=== PATIENT | male | born 1985 ===

== ENCOUNTER 2018-12-07 19:18 | Emergency (ER) | payer OTHER ==
[2018-12-07 19:24] VITALS: BP 127/66; PULSE 55; RESP 16; TEMP 98.7; O2SAT 99
[2018-12-07] MEDS ORDERED: Fluorescein 1 mg Ophthalmic Strip OS ONE (19:50)
[2018-12-07] MEDS ORDERED: Tetracaine 0.5% Ophth 2 ML BOTTLE OS ONE (19:50)
--- NOTE | 2018-12-07 20:09 | ED PDOC ---
HPI: Eye Injury/Pain Time Seen by Provider: 12/07/18 19:25 Chief Complaint (Nursing): Eye Problem Chief Complaint (Provider): Left Eye Discomfort History Per: Patient, Manager Recruitment (AntonietaYossiCrowning Inspector Rocael #[id number]) History/Exam Limitations: no limitations Onset/Duration Of Symptoms: Hrs (since 1500 today) Current Symptoms Are (Timing): Still Present Additional Complaint(s): 33 year old male presents to the ED for evaluation of foreign body sensation to his left eye. 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 Contrary to triage note, patient denies chemical exposure. Additionally denies fever, visual changes, mucus discharge, and trauma to the eye. Does not wear glasses or contacts. No other complaints at present. PMD: none provided Past Medical History Reviewed: Historical Data, Nursing Documentation, Vital Signs Vital Signs: Last Vital Signs Temp 98.7 F 12/07/18 19:23 Pulse 55 L 12/07/18 19:23 Resp 16 12/07/18 19:23 BP 127/66 12/07/18 19:23 Pulse Ox 99 12/07/18 19:23 - Medical History PMH: No Chronic Diseases - Surgical History Other surgeries: Yes: stigmatism and myopia correction - Family History Family History: States: Unknown Family Hx - Social History Current smoker - smoking cessation education provided: No Alcohol: None Drugs: Denies - Home Medications Home Medications: Ambulatory Orders Medication Instructions Recorded Tobramycin 0.3% [Tobrex 0.3% Ophth 1 drop OS Q6 #1 bottle 12/07/18 Soln] - Allergies Allergies/Adverse Reactions: Allergies Allergy/AdvReac Type Severity Reaction Status Date / Time No Known Allergies Allergy Verified 12/07/18 19:22 Review of Systems ROS Statement: Except As Marked, All Systems Reviewed And Found Negative Constitutional: Negative for: Fever Eyes: Positive for: Other (foreign body sensation to left eye with localized discomfort, but no mucus discharge). Negative for: Vision Change Physical Exam - Reviewed Nursing Documentation Reviewed: Yes Vital Signs Reviewed: Yes - Physical Exam Comments: GENERAL APPEARANCE: Patient is awake, alert, oriented x 3, in no acute distress. Resting comfortably. HEENT: (-) facial swelling and erythema, (-) facial blisters. (-) periorbital swelling, erythema, or tenderness VISUAL ACUITIES: Left eye: 20/ 40 ; Right eye: 20/ 25 ; Bilateral: 20/ 13 LIDS & LASHES: Normal. No crusting. PUPILS: Pupils equal and reactive. EOMI's: Intact and painless. LID EVERSION: (-) foreign body. CONJUNCTIVAE: (-) injection (-) chemosis ANTERIOR CHAMBER: (-) foreign body, (-) hyphema. FLUORESCEIN: (+) 2mm uptake to 4 o'clock position to left iris CARDIOVASCULAR: regular rate and rhythm RESPIRATORY: lungs clear to auscultation bilaterally; breath sounds equal. Respirations even and nonlabored. NEURO: Mental status as above. Gait: steady. Speech: clear. (-) facial asymmetry (-) aphasia. - ECG O2 Sat by Pulse Oximetry: 99 (RA) Pulse Ox Interpretation: Normal Medical Decision Making Medical Decision Making: Initial Impression: foreign body sensation of eye, eye irritation Time: 1949 Initial Plan: --Nwfow-I-Osoqn 1mg OS --Tetracaine 1 drop OS --Visual acuity --Re-evaluation 2054 Tobramycin eye drops ordered in light of fluorescein findings. 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 Lab/Diagnostic results d/w the patient in great detail. Diagnosis of foreign body sensation of eye, conjunctival abrasion d/w the patient. Based on history, exam and diagnostic results, plan will be for outpatient follow up with ophtho/clinic. Patient instructed to follow-up with pmd / referral provided / the clinic in 1- 2 days without fail. Advised to take medication as prescribed. Return to the emergency room at any time for any new or worsening symptoms. Patient states he fully agrees with and understands discharge instructions. States that he agrees with the plan and disposition. Verbalized and repeated discharge instructions and plan. I have given the patient opportunity to ask any additional questions. Scribe Attestation: Documented by Elma Bailey, acting as a scribe for Iwona Zhang PA-C. Provider Scribe Attestation: All medical record entries made by the Scribe were at my direction and person ally dictated by me. I have reviewed the chart and agree that the record accurately reflects my personal performance of the history, physical exam, medical decision making, and the department course for this patient. I have also personally directed, reviewed, and agree with the discharge instructions and disposition. Disposition - Clinical Impression Clinical Impression: Conjunctival abrasion, Eye irritation, Sensation of foreign body in eye - Patient ED Disposition Is Patient to be Admitted: No Counseled Patient/Family Regarding: Studies Performed, Diagnosis, Need For Followup, Rx Given - Disposition Referrals: Christian Menjivar MD [Staff Provider] - [facility] [Outside] Disposition: Routine/Home Disposition Time: 21:00 Condition: STABLE Additional Instructions: La atencin mdica de emergencia que recibi hoy se dirigi a martina sntomas agudos. Si le recetaron algn medicamento, llnelo y tmelo segn las indicaciones. Los sntomas pueden tardar varios schafer en resolverse. Regrese al Departamento de Emergencias si martina sntomas empeoran, no mejoran o si tiene otros problemas. Comunquese con langford mdico dentro de 2 schafer para julissa nueva evaluacin y michelle un seguimiento o llame a azra de los mdicos / clnicas a los que shen sido referido y que figuran en el formulario de Informacin de visita al paciente que se incluye en [place] pa[place] de cornel. Lleve todos los documentos que recibi al momento del cornel junto con los medicamentos que est tomando para langford visita de seguimiento. Nuestro tratamiento no puede reemplazar la atencin mdica continua por parte de un proveedor de atencin primaria (PCP) fuera del departamento de emergencias. Prescriptions: Tobramycin 0.3% [Tobrex 0.3% Ophth Soln] 1 drop OS Q6 #1 bottle Instructions: Corneal Abrasion, How to Use Eye Drops Forms: [employer] ([employer]), [facility] ED School/Work Excuse Print Language: GE[place] - POMaria Fernanda Present On Arrival: None
[2018-12-07] MEDS ORDERED: Fluorescein 1 mg Ophthalmic Strip ONE (20:37)
[2018-12-07] MEDS ORDERED: Tobramycin 0.3% OPHT SOLN OS ONE (20:54)
[2018-12-07] MEDS ORDERED: Tobramycin 0.3% OPHT SOLN ONE (21:04)
== END 2018-12-07 21:05 | disposition home or self-care (01) ==
LOC: H.ER 19:18
DX: H57.89 Other specified disorders of eye and adnexa (principal)